=== PATIENT | female | born 1965 | race Asian ===

== ENCOUNTER 2019-03-09 16:35 | Emergency (ER) | payer OTHER ==
[~2019-03-09] VITALS: Ht 160 cm; Wt 65.8 kg
[2019-03-09] MEDS ORDERED: GABAPENTIN100 MG ORAL (16:50)
[2019-03-09] MEDS ORDERED: VOLTAREN25 MG PO (16:50)
[2019-03-09] MEDS ORDERED: NORCO 5-325 TA1 EACH ORAL (16:50)
[2019-03-09] MEDS ORDERED: ATENOLOL50 MG ORAL (16:50)
[2019-03-09] MEDS ORDERED: ZANTAC150 MG ORAL (16:50)
[2019-03-09 17:02] VITALS: BP 150/75
--- NOTE | 2019-03-09 17:12 | NUR ---
ED Nurse Note: Pt arrived in ED as walk in. Pt c/o dizziness and abdominal pain that started yesterday after eating a meal. Pt stated pain 01/13. Pt in gown and placed on quality assurance monitor body. No acute signs of distress noted.
[2019-03-09] MEDS ORDERED: Metoclopramide 10mg/2ml Inj IVP ONE (17:15)
--- NOTE | 2019-03-09 17:20 | NUR ---
ED Nurse Note: EKG at bedside by dairy technologist.
--- NOTE | 2019-03-09 17:28 | NUR ---
ED Nurse Note: pt was reminded to provide urine sample. pt will notify staff know when she can urinate.
--- NOTE | 2019-03-09 17:40 | NUR ---
ED Nurse Note: urine sample sent to lab.
[2019-03-09 17:42] LABS: BASOPHILS % (AUTO) 1.4 % (0.0-2.0); EOSINOPHILS % (AUTO) 7.8 % (0.0-3.0); HEMATOCRIT 38.4 % (37.0-47.0); HEMOGLOBIN 13.4 G/DL (12.0-16.0); LYMPHOCYTES % (AUTO) 33.5 % (20.0-45.0); MEAN CORPUSCULAR VOLUME 87 FL (80-99); MONOCYTES % (AUTO) 6.3 % (1.0-10.0); PLATELET COUNT 366 K/UL (150-450); WHITE BLOOD COUNT 7.4 K/UL (4.8-10.8)
[2019-03-09 17:49] LABS: ANION GAP 6 mmol/L (5-15); BLOOD UREA NITROGEN 14 mg/dL (7-18); CALCIUM 9.6 MG/DL (8.5-10.1); CARBON DIOXIDE 30 MMOL/L (21-32); CHLORIDE 104 MMOL/L (98-107); CREATININE 0.8 MG/DL (0.55-1.30); POTASSIUM 4.2 MMOL/L (3.5-5.1); SODIUM 140 MMOL/L (136-145)
[2019-03-09 17:54] LABS: ALANINE AMINOTRANSFERASE 34 U/L (12-78); ALBUMIN 3.9 G/DL (3.4-5.0); ALBUMIN/GLOBULIN RATIO 1.1 (1.0-2.7); ALKALINE PHOSPHATASE 49 U/L (46-116); ASPARTATE AMINO TRANSFERASE 22 U/L (15-37); BILIRUBIN,TOTAL 0.3 MG/DL (0.2-1.0)
[2019-03-09] MEDS ORDERED: ONDANSETRON ODT4 MG BC (18:09)
[2019-03-09] MEDS ORDERED: RANITIDINE HCL150 MG ORAL (18:09)
[2019-03-09 18:13] VITALS: BP 132/74
[2019-03-09 18:13] LABS: APPEARANCE,URINE CLEAR; BILIRUBIN, URINE NEGATIVE (NEGATIVE); COLOR,URINE PALE YELLOW; GLUCOSE, URINE (UA) NEGATIVE (NEGATIVE); KETONES,URINE NEGATIVE (NEGATIVE); LEUKOCYTE ESTERASE ,URINE NEGATIVE (NEGATIVE); NITRITE,URINE NEGATIVE (NEGATIVE); PH,URINE 5 (4.5-8.0); PROTEIN,URINE NEGATIVE (NEGATIVE); UROBILINOGEN,URINE NORMAL MG/DL (0.0-1.0)
--- NOTE | 2019-03-09 18:15 | NUR ---
ED Nurse Note: Pt cleared by health care Provider for discharge. DC instructions/prescription was given and explained to pt and verbalized understanding of teachings. Patient verbalized improved pain level to 2/10. All medical deviecs such as ID band removed. Pt is AAO x4, ambulatory and left with all personal belongings.
--- NOTE | 2019-03-09 19:25 | Emergency Room Report ---
History of Present Illness General Chief Complaint: Dizziness Source: Patient Present Illness HPI 53-year-old female presents ED for evaluation. Complaining of abdominal pain with nausea and vomiting and dizziness. Started last night after eating a " corn beef". Pain is burning, epigastric, 5 out of 10, nonradiating. Notes nausea, denies vomiting. Notes some loose stools. Denies chest pain or shortness of breath. Denies fevers or chills. Denies recent travel or recent antibiotic use. No other aggravating relieving factors. Denies any other associated symptoms Allergies: Coded Allergies: LORAZEPAM (Verified Allergy, Mild, Itching, 03/09/19) MORPHINE (Verified Allergy, Mild, Rash, 03/09/19) Patient History Past Medical History: HTN, other - neuropathy Past Surgical History: none Pertinent Family History: none Social History: Denies: smoking, alcohol use, drug use Last Menstrual Period: 2018 Now: No : 3 Para: 1 Immunizations: UTD Reviewed Nursing Documentation: PMH: Agreed; PSxH: Agreed Nursing Documentation-PMH Hx Hypertension: Yes Hx Gastrointestinal Problems: Yes Hx Neurological Problems: Yes - neuropathy Review of Systems All Other Systems: negative except mentioned in HPI Physical Exam Vital Signs Date Time Temp Pulse Resp B/P (MAP) Pulse Ox O2 Delivery O2 Flow Rate FiO2 03/09/19 16:41 97.9 59 16 143/86 (105) 98 Room Air Sp02 EP Interpretation: reviewed, normal General Appearance: no apparent distress, alert, GCS 15, non-toxic Head: normocephalic, atraumatic Eyes: bilateral eye normal inspection, bilateral eye PERRL ENT: hearing grossly normal, normal pharynx, no angioedema, normal voice Neck: full range of motion, supple/symm/no masses Respiratory: chest non-tender, lungs clear, normal breath sounds, speaking full sentences Cardiovascular #1: regular rate, rhythm, no edema Cardiovascular #2: 2+ carotid (R), 2+ carotid (L), 2+ radial (R), 2+ radial (L) , 2+ dorsalis pedis (R), 2+ dorsalis pedis (L) Gastrointestinal: normal bowel sounds, non tender, soft, non-distended, no guarding, no rebound Rectal: deferred Genitourinary: normal inspection, no CVA tenderness Musculoskeletal: back normal, gait/station normal, normal range of motion, non- tender Neurologic: alert, oriented x3, responsive, motor strength/tone normal, sensory intact, speech normal Psychiatric: judgement/insight normal, memory normal, mood/affect normal, no suicidal/homicidal ideation Reflexes: 3+ bicep (R), 3+ bicep (L), 3+ tricep (R), 3+ tricep (L), 3+ knee (R) , 3+ knee (L) Lymphatic: no adenopathy Medical Decision Making Diagnostic Impression: Primary Impression: Gastroenteritis ER Course Hospital Course 53 yo F presents to ED c/o dizziness, nausea, abd pain differential diagnosis: gastritis, SBO, cholecystits, gastroenteritis Clinical course Patient placed on stretcher. On personnel monitor. After initial history and physical I ordered labs, IV fluids, EKG, zofran, pepcid Labs - no leukocytosis, electrolytes ok, EKG - NSR, no acute ischemic changes interpreted by me Upon reassessment, patient states pain has improved. findings consistent with gastroenteritis I discussed findings with patient. Will discharge to home with prescriptions. I will provide referrals I feel this is a highly complex case requiring extensive working including EKG/ Rhythm strip, Xray/CT/US, Blood/urine lab work, repeat exams while in ED, and administration of strong opiates/narcotics for pain control, admission to hospital or close patient follow up. Diagnosis - gastroenteritis Stable and discharged to home with prescriptions for Zantac, zofran. Followup with PMD. Return to ED if symptoms recur or worsen Labs Test 03/09/19 17:15 03/09/19 17:30 White Blood Count 7.4 K/UL (4.8-10.8) Red Blood Count 4.40 M/UL (4.20-5.40) Hemoglobin 13.4 G/DL (12.0-16.0) Hematocrit 38.4 % (37.0-47.0) Mean Corpuscular Volume 87 FL (80-99) Mean Corpuscular Hemoglobin 30.4 PG (27.0-31.0) Mean Corpuscular Hemoglobin Concent 34.9 G/DL (32.0-36.0) Red Cell Distribution Width 10.0 % (11.6-14.8) Platelet Count 366 K/UL (150-450) Mean Platelet Volume 5.3 FL (6.5-10.1) Neutrophils (%) (Auto) 51.0 % (45.0-75.0) Lymphocytes (%) (Auto) 33.5 % (20.0-45.0) Monocytes (%) (Auto) 6.3 % (1.0-10.0) Eosinophils (%) (Auto) 7.8 % (0.0-3.0) Basophils (%) (Auto) 1.4 % (0.0-2.0) Sodium Level 140 MMOL/L (136-145) Potassium Level 4.2 MMOL/L (3.5-5.1) Chloride Level 104 MMOL/L (98-107) Carbon Dioxide Level 30 MMOL/L (21-32) Anion Gap 6 mmol/L (5-15) Blood Urea Nitrogen 14 mg/dL (7-18) Creatinine 0.8 MG/DL (0.55-1.30) Estimat Glomerular Filtration Rate > 60 mL/min (>60) Glucose Level 95 MG/DL (74-106) Calcium Level 9.6 MG/DL (8.5-10.1) Total Bilirubin 0.3 MG/DL (0.2-1.0) Aspartate Amino Transf (AST/SGOT) 22 U/L (15-37) Alanine Aminotransferase (ALT/SGPT) 34 U/L (12-78) Alkaline Phosphatase 49 U/L (46-116) Total Protein 7.4 G/DL (6.4-8.2) Albumin 3.9 G/DL (3.4-5.0) Globulin 3.5 g/dL Albumin/Globulin Ratio 1.1 (1.0-2.7) Lipase 146 U/L (73-393) Urine Color Pale yellow Urine Appearance Clear Urine pH 5 (4.5-8.0) Urine Specific [place] 1.015 (1.005-1.035) Urine Protein Negative (NEGATIVE) Urine Glucose (UA) Negative (NEGATIVE) Urine Ketones Negative (NEGATIVE) Urine Blood Negative (NEGATIVE) Urine Nitrite Negative (NEGATIVE) Urine Bilirubin Negative (NEGATIVE) Urine Urobilinogen Normal MG/DL (0.0-1.0) Urine Leukocyte Esterase Negative (NEGATIVE) EKG Diagnostic Results Rate: bradycardiac Rhythm: NSR ST Segments: no acute changes ASA given to the pt in ED: No Rhythm Strip Diag. Results EP Interpretation: yes Rhythm: NSR, no PVC's, no ectopy Last Vital Signs Date Time Temp Pulse Resp B/P (MAP) Pulse Ox O2 Delivery O2 Flow Rate FiO2 03/09/19 18:13 98.0 80 15 132/74 100 Room Air Status: improved Disposition: HOME, SELF-CARE Condition: Stable Scripts Ranitidine Hcl* (ZANTAC*) 150 Mg Tablet 150 MG ORAL TWICE A DAY, #30 TAB Prov: Wu Betancur MD 03/09/19 Ondansetron Odt* (ZOFRAN ODT*) 4 Mg Tab.rapdis 4 MG BC EVERY 6 HOURS PRN for Nausea & Vomiting, #20 TAB 0 Refills Prov: Wu Betancur MD 03/09/19 Referrals: [facility],REFERRING (PCP) Patient Instructions: Viral Gastroenteritis, Adult, [id number] Wu Betancur MD Mar 09, 2019 19:25
== END 2019-03-09 18:15 | disposition home or self-care (01) ==
LOC: EMR 17:03
DX: K52.9 Noninfective gastroenteritis and colitis, unspecified (principal); I10 Essential (primary) hypertension; G62.9 Polyneuropathy, unspecified; Z88.8 Allergy status to other drugs, medicaments and biological substances; Z88.6 Allergy status to analgesic agent
CPT/HCPCS: 36415; 80053; 81003; 83690; 85025; 93005; 96361; 96374; 96375; J2765; S0028; Z7502; 99284; J7030

== ENCOUNTER 2019-12-16 13:04 | Emergency (ER) | payer OTHER ==
[~2019-12-16] VITALS: Ht 160 cm; Wt 70.3 kg
[~2019-12-16 13:04] MED LIST: ATENOLOL50 MG ORAL; GABAPENTIN100 MG ORAL; NORCO 5-325 TA1 EACH ORAL; ONDANSETRON ODT4 MG BC; RANITIDINE HCL150 MG ORAL; VOLTAREN25 MG PO; ZANTAC150 MG ORAL
--- NOTE | 2019-12-16 13:20 | NUR ---
ED Nurse Note: Pt walked in from home c/o head ache and chills x 2 days. Pt has hx of HTN, BP elevated in the 170s upon arrival. Pt recently treated for hives, but feels the symptoms have become worse. Respirations even and unlabored on room air. Vitals stable as documented. A+Ox4, speaking in full sentences.
[2019-12-16 13:28] VITALS: BP 171/86
[2019-12-16] MEDS ORDERED: Metoclopramide 10mg/2ml Inj IVP ONE (15:00)
[2019-12-16] MEDS ORDERED: DiphenhydrAMINE 50mg/ml Inj IVP ONE (15:00)
[2019-12-16] MEDS ORDERED: Ketorolac 30mg Inj IV ONE (15:00)
--- NOTE | 2019-12-16 15:00 | Emergency Room Report ---
History of Present Illness General Chief Complaint: Headache Source: Patient Present Illness HPI Patient recently was treated for hives. She took prednisone 50 mg after being seen and receiving shots. She also has taken given Pepcid. She feels the Pepcid is not helping and makes her feel worse. Her main complaint at this time is headache. She feels it throughout her head. Pressure and pounding. She says 8 or 9/10. She is never had a headache like this before. Gradual onset. She denies any weakness. She feels dizzy. She has some nausea. She states her blood pressures been extremely high at this time. The rash is better and she has no itching. No fevers, chills, sore throat, chest pain, palpitations, vomiting, diarrhea, dysuria, abdominal pain, shortness of breath, joint pain, depression, anxiety, visual changes. Allergies: Coded Allergies: LORAZEPAM (Verified Allergy, Mild, Itching, 03/09/19) MORPHINE (Verified Allergy, Mild, Rash, 03/09/19) COVID-19 Screening Contact w/high risk pt: No Experienced COVID-19 symptoms?: No COVID-19 Testing performed CASEY SAW OPERATOR: No Patient History Past Medical History: see triage record Social History: Denies: smoking Social History Narrative Now: No Reviewed Nursing Documentation: PMH: Agreed; PSxH: Agreed Nursing Documentation-PMH Past Medical History: No History, Except For Hx Hypertension: Yes Hx Gastrointestinal Problems: Yes Hx Neurological Problems: Yes - neuropathy Review of Systems All Other Systems: negative except mentioned in HPI Physical Exam Vital Signs Date Time Temp Pulse Resp B/P (MAP) Pulse Ox O2 Delivery O2 Flow Rate FiO2 12/16/19 13:13 98.2 59 19 172/81 (111) 96 Room Air Sp02 EP Interpretation: reviewed, normal General Appearance: well appearing, no apparent distress, GCS 15 Head: normocephalic Eyes: bilateral eye normal inspection, bilateral eye PERRL, bilateral eye EOMI ENT: normal pharynx, moist mucus membranes Neck: full range of motion, supple Respiratory: lungs clear, normal breath sounds Cardiovascular #1: regular rate, rhythm Cardiovascular #2: 2+ radial (R) Gastrointestinal: normal inspection, normal bowel sounds, non tender, no mass, non-distended Musculoskeletal: back normal, normal range of motion, gait/station normal Neurologic: alert, motor strength/tone normal, research consultant III-XII nml as tested, oriented x3, sensory intact, cerebellar normal, speech normal Psychiatric: mood/affect normal Skin: no rash, warm/dry Medical Decision Making Diagnostic Impression: Primary Impression: Headache Qualified Codes: G44.099 - Other trigeminal autonomic cephalgias (tac), not intractable Additional Impressions: History of allergic urticaria Prednisone adverse reaction Qualified Codes: T38.0X5A - Adverse effect of glucocorticoids and synthetic analogues, initial encounter ER Course Patient presents with headache and dizziness while taking prednisone. Differential subarachnoid bleed, hypertensive urgency, tension headache, adverse reaction to prednisone amongst others. She has a nonfocal neurologic exam and no red flag symptoms or signs therefore imaging is not indicated. Evaluation with labs. Treatment with Reglan, Toradol and Benadryl. EKG obtained. Placed on bus driver/monitor due to hypertension. EKG no injury. Labs unremarkable. Patient improved with treatment. Blood pressure normalized. Discussed findings with patient and need for outpatient follow up. Patient stable for outpatient observation and treatment. Laboratory Tests Test 12/16/19 15:15 White Blood Count 10.3 K/UL (4.8-10.8) Red Blood Count 4.45 M/UL (4.20-5.40) Hemoglobin 13.7 G/DL (12.0-16.0) Hematocrit 39.9 % (37.0-47.0) Mean Corpuscular Volume 90 FL (80-99) Mean Corpuscular Hemoglobin 30.8 PG (27.0-31.0) Mean Corpuscular Hemoglobin Concent 34.4 G/DL (32.0-36.0) Red Cell Distribution Width 11.8 % (11.6-14.8) Platelet Count 304 K/UL (150-450) Mean Platelet Volume 5.6 FL (6.5-10.1) L Neutrophils (%) (Auto) 54.2 % (45.0-75.0) Lymphocytes (%) (Auto) 29.2 % (20.0-45.0) Monocytes (%) (Auto) 6.7 % (1.0-10.0) Eosinophils (%) (Auto) 8.7 % (0.0-3.0) H Basophils (%) (Auto) 1.2 % (0.0-2.0) Prothrombin Time 11.0 SEC (9.30-11.50) Prothrombin Time INR 1.0 (0.9-1.1) Activated Partial Thromboplast Time 24 SEC (23-33) Urine Color Pale yellow Urine Appearance Clear Urine pH 6 (4.5-8.0) Urine Specific [place] 1.010 (1.005-1.035) Urine Protein Negative (NEGATIVE) Urine Glucose (UA) Negative (NEGATIVE) Urine Ketones Negative (NEGATIVE) Urine Blood Negative (NEGATIVE) Urine Nitrite Negative (NEGATIVE) Urine Bilirubin Negative (NEGATIVE) Urine Urobilinogen Normal MG/DL (0.0-1.0) Urine Leukocyte Esterase Negative (NEGATIVE) Sodium Level 137 MMOL/L (136-145) Potassium Level 3.9 MMOL/L (3.5-5.1) Chloride Level 102 MMOL/L (98-107) Carbon Dioxide Level 29 MMOL/L (21-32) Anion Gap 6 mmol/L (5-15) Blood Urea Nitrogen 13 mg/dL (7-18) Creatinine 0.9 MG/DL (0.55-1.30) Estimated Glomerular Filtration Rate > 60 mL/min (>60) Glucose Level 102 MG/DL (74-106) Calcium Level 9.2 MG/DL (8.5-10.1) Total Bilirubin 0.4 MG/DL (0.2-1.0) Aspartate Amino Transferase (AST) 15 U/L (15-37) Alanine Aminotransferase (ALT) 32 U/L (12-78) Alkaline Phosphatase 49 U/L (46-116) Total Creatine Kinase 101 U/L (26-308) Troponin I 0.000 ng/mL (0.000-0.056) Pro-B-Type Natriuretic Peptide 138 pg/mL (0-125) H Total Protein 7.1 G/DL (6.4-8.2) Albumin 3.8 G/DL (3.4-5.0) Globulin 3.3 g/dL Albumin/Globulin Ratio 1.2 (1.0-2.7) EKG Diagnostic Results Rate: bradycardiac Rhythm: NSR ST Segments: no acute changes Rhythm Strip Diag. Results EP Interpretation: yes Rhythm: no PVC's, no ectopy, other - Bradycardia rate 54 Last Vital Signs Date Time Temp Pulse Resp B/P (MAP) Pulse Ox O2 Delivery O2 Flow Rate FiO2 8/12/20 16:40 98.3 78 16 115/72 98 Room Air Status: improved Disposition: HOME, SELF-CARE Condition: Improved Scripts Ondansetron Odt* (ZOFRAN ODT*) 4 Mg Tab.rapdis 4 MG BC EVERY 8 HOURS, #6 TAB 1 Refill Prov: Isra Jacob MD 12/16/19 Referrals: NON PHYSICIAN (PCP) Isra Jacob MD Dec 16, 2019 15:00
[2019-12-16 15:35] LABS: BASOPHILS % (AUTO) 1.2 % (0.0-2.0); EOSINOPHILS % (AUTO) 8.7 % (0.0-3.0); HEMATOCRIT 39.9 % (37.0-47.0); HEMOGLOBIN 13.7 G/DL (12.0-16.0); LYMPHOCYTES % (AUTO) 29.2 % (20.0-45.0); MEAN CORPUSCULAR VOLUME 90 FL (80-99); MONOCYTES % (AUTO) 6.7 % (1.0-10.0); NEUTROPHILS % (AUTO) 54.2 % (45.0-75.0); PLATELET COUNT 304 K/UL (150-450); RED BLOOD COUNT 4.45 M/UL (4.20-5.40); RED CELL DISTRIBUTION WIDTH 11.8 % (11.6-14.8); WHITE BLOOD COUNT 10.3 K/UL (4.8-10.8)
[2019-12-16 15:45] LABS: ANION GAP 6 mmol/L (5-15); BLOOD UREA NITROGEN 13 mg/dL (7-18); CALCIUM 9.2 MG/DL (8.5-10.1); CARBON DIOXIDE 29 MMOL/L (21-32); CHLORIDE 102 MMOL/L (98-107); CREATININE 0.9 MG/DL (0.55-1.30); POTASSIUM 3.9 MMOL/L (3.5-5.1); SODIUM 137 MMOL/L (136-145)
[2019-12-16 15:55] LABS: ALANINE AMINOTRANSFERASE 32 U/L (12-78); ALBUMIN 3.8 G/DL (3.4-5.0); ALBUMIN/GLOBULIN RATIO 1.2 (1.0-2.7); ALKALINE PHOSPHATASE 49 U/L (46-116); ASPARTATE AMINO TRANSFERASE 15 U/L (15-37); BILIRUBIN,TOTAL 0.4 MG/DL (0.2-1.0); CREATINE KINASE 101 U/L (26-308)
[2019-12-16 16:22] LABS: APPEARANCE,URINE CLEAR; BILIRUBIN, URINE NEGATIVE (NEGATIVE); COLOR,URINE PALE YELLOW; GLUCOSE, URINE (UA) NEGATIVE (NEGATIVE); KETONES,URINE NEGATIVE (NEGATIVE); LEUKOCYTE ESTERASE ,URINE NEGATIVE (NEGATIVE); NITRITE,URINE NEGATIVE (NEGATIVE); PH,URINE 6 (4.5-8.0); PROTEIN,URINE NEGATIVE (NEGATIVE); UROBILINOGEN,URINE NORMAL MG/DL (0.0-1.0)
[2019-12-16] MEDS ORDERED: ONDANSETRON ODT4 MG BC (16:31)
[2019-12-16 16:40] VITALS: BP 115/72
--- NOTE | 2019-12-16 16:40 | NUR ---
ED Nurse Note: Pt cleared by ERMD for discharge. DC instructions/prescription was given and explained to pt and verbalized understanding of teachings. All medical deviecs such as ID band and IV line removed. Pt is AAO x4, ambulatory and left with all personal belongings. P/u by her son.
--- NOTE | 2019-12-16 16:40 | NUR ---
ER DISCHARGE NOTE: Patient is cleared to be discharged per ERMD, pt is aox4, on room air, with stable vital signs. pt was given dc and prescription instructions, pt was able to verbalize understanding, pt id band and iv site removed without complications. pt is able to ambulate with steady gait. pt took all belongings.
[2019-12-17] MEDS ORDERED: FIORICET1 EA ORAL (16:28)
[2019-12-17] MEDS ORDERED: MECLIZINE HCL25 MG ORAL (16:28)
== END 2019-12-16 16:40 | disposition home or self-care (01) ==
LOC: EMR 13:26
DX: G44.099 Other trigeminal autonomic cephalgias (TAC), not intractable (principal); T38.0X5A Adverse effect of glucocorticoids and synthetic analogues, initial encounter; X58.XXXA Exposure to other specified factors, initial encounter; Y92.9 Unspecified place or not applicable; Z88.6 Allergy status to analgesic agent; I10 Essential (primary) hypertension; G62.9 Polyneuropathy, unspecified; R00.1 Bradycardia, unspecified
CPT/HCPCS: 36415; 80053; 81003; 82550; 83880; 84484; 85025; 85610; 85730; 93005; 96374; 96375; J1200; J1885; J2765; Z7502; 99284

== ENCOUNTER 2019-12-17 13:11 | Emergency (ER) | payer OTHER ==
[~2019-12-17] VITALS: Ht 160 cm; Wt 69.9 kg
[2019-12-17 13:28] VITALS: BP 142/75
[2019-12-17] MEDS ORDERED: Meclizine 25mg tab ORAL ONE ×2 (13:45→16:30)
--- NOTE | 2019-12-17 13:47 | Emergency Room Report ---
History of Present Illness General Chief Complaint: General Complaint Source: Patient Present Illness HPI Patient 54-year-old female presents after increased dizziness. Patient had reported increased spinning sensation. Reports is being worse with head movements. Associated nausea. Had recently been diagnosed with allergic reaction. Prior history of hypertension. Denies any ringing in her ears. States increased vertigo with movements of the head to both directions. Denies any hematemesis. Denies any chest discomfort. Reports having some history of high blood pressure. She states she takes atenolol. Patient had been seen yesterday at this emergency department and stated that she felt better yesterday. Vertigo subsequently recurred. Patient reports having some generalized headache. Denies any recent ill contacts. Denies any recent fever. Allergies: Coded Allergies: LORAZEPAM (Verified Allergy, Mild, Itching, 03/09/19) MORPHINE (Verified Allergy, Mild, Rash, 03/09/19) COVID-19 Screening Contact w/high risk pt: No Experienced COVID-19 symptoms?: No COVID-19 Testing performed HORTICULTURAL THERAPIST: No Patient History Past Medical History: see triage record Reviewed Nursing Documentation: PMH: Agreed; PSxH: Agreed Nursing Documentation-PMH Past Medical History: No History, Except For Hx Hypertension: Yes Hx Gastrointestinal Problems: Yes Hx Neurological Problems: Yes - neuropathy Review of Systems All Other Systems: negative except mentioned in HPI Physical Exam Vital Signs Date Time Temp Pulse Resp B/P (MAP) Pulse Ox O2 Delivery O2 Flow Rate FiO2 12/17/19 13:19 98.4 54 17 143/76 (98) 97 Room Air Sp02 EP Interpretation: reviewed, normal General Appearance: normal inspection, well appearing, no apparent distress, alert, GCS 15 Head: atraumatic ENT: normal ENT inspection, hearing grossly normal, normal voice Neck: normal inspection, full range of motion, supple, no bony tend Respiratory: normal inspection, lungs clear, normal breath sounds, no respiratory distress, no retraction, no wheezing Cardiovascular #1: regular rate, rhythm, no edema Gastrointestinal: normal inspection, normal bowel sounds, non tender, soft, no guarding, no hernia Genitourinary: no CVA tenderness Musculoskeletal: normal inspection, back normal, normal range of motion Neurologic: alert, motor strength/tone normal, spoon maker III-XII nml as tested, oriented x3, responsive, speech normal, normal inspection, other - Normal finger -to-nose, normal rapid alternating movement Psychiatric: normal inspection, judgement/insight normal, mood/affect normal Medical Decision Making Diagnostic Impression: Primary Impression: Headache ER Course Patient presented for increased dizziness. Differential diagnosis include was not limited to vertigo, laryngitis, CVA, labyrinthitis, benign positional vertigo, medication reaction among others. Because of complexity of patient's case laboratory tests and imaging studies were ordered.Patient was noted to have some recent history of allergic reaction for which he was prescribed prednisone. Persistently has some dizziness. CT imaging of the head was ordered to evaluate for possible posterior circulation abnormalities. CT of the head read by radiology showed no evidence of vascular occlusion. See radiology report for full details patient was given prescription for meclizine and patient was noted to have some improvement in vertigo. She was able to ambulate without assistance. Patient was advised to follow-up with neurology and ENT. She is advised to return if worse. She is advised low-salt diet. The patient is advised to follow up with primary care doctor in 1-2 days. Patient is advised to return if any worsening condition or if any changes in status that are concerning. This report is dictated with [employer] java software architect software which may occasionally lead to discrepancies related to use of this software. Labs Test 12/17/19 13:55 White Blood Count 8.9 K/UL (4.8-10.8) Red Blood Count 4.53 M/UL (4.20-5.40) Hemoglobin 13.6 G/DL (12.0-16.0) Hematocrit 40.6 % (37.0-47.0) Mean Corpuscular Volume 90 FL (80-99) Mean Corpuscular Hemoglobin 29.9 PG (27.0-31.0) Mean Corpuscular Hemoglobin Concent 33.4 G/DL (32.0-36.0) Red Cell Distribution Width 11.6 % (11.6-14.8) Platelet Count 313 K/UL (150-450) Mean Platelet Volume 5.9 FL (6.5-10.1) Neutrophils (%) (Auto) 59.3 % (45.0-75.0) Lymphocytes (%) (Auto) 23.3 % (20.0-45.0) Monocytes (%) (Auto) 6.9 % (1.0-10.0) Eosinophils (%) (Auto) 9.3 % (0.0-3.0) Basophils (%) (Auto) 1.2 % (0.0-2.0) Urine Color Pale yellow Urine Appearance Cloudy Urine pH 8 (4.5-8.0) Urine Specific [place] 1.010 (1.005-1.035) Urine Protein Negative (NEGATIVE) Urine Glucose (UA) Negative (NEGATIVE) Urine Ketones Negative (NEGATIVE) Urine Blood Negative (NEGATIVE) Urine Nitrite Negative (NEGATIVE) Urine Bilirubin Negative (NEGATIVE) Urine Urobilinogen Normal MG/DL (0.0-1.0) Urine Leukocyte Esterase Negative (NEGATIVE) Last Vital Signs Date Time Temp Pulse Resp B/P (MAP) Pulse Ox O2 Delivery O2 Flow Rate FiO2 12/17/19 13:28 57 17 Room Air 12/17/19 13:19 98.4 143/76 (98) 97 Status: improved Disposition: HOME, SELF-CARE Condition: Stable Scripts Meclizine Hcl* (MECLIZINE*) 25 Mg Tablet 25 MG ORAL THREE TIMES A DAY, #30 TAB Prov: Jim Coreas MD 12/17/19 Acetamin/Butalbital/Caffeine* (FIORICET*) 1 Ea Tab 1 TAB ORAL Q6H, #15 TAB 0 Refills Prov: Jim Coreas MD 12/17/19 Referrals: NON PHYSICIAN (PCP) Jim Coreas MD Dec 17, 2019 13:47
[2019-12-17 14:28] LABS: APPEARANCE,URINE CLOUDY; BILIRUBIN, URINE NEGATIVE (NEGATIVE); COLOR,URINE PALE YELLOW; GLUCOSE, URINE (UA) NEGATIVE (NEGATIVE); KETONES,URINE NEGATIVE (NEGATIVE); LEUKOCYTE ESTERASE ,URINE NEGATIVE (NEGATIVE); NITRITE,URINE NEGATIVE (NEGATIVE); PH,URINE 8 (4.5-8.0); PROTEIN,URINE NEGATIVE (NEGATIVE); UROBILINOGEN,URINE NORMAL MG/DL (0.0-1.0)
[2019-12-17 14:29] LABS: BASOPHILS % (AUTO) 1.2 % (0.0-2.0); EOSINOPHILS % (AUTO) 9.3 % (0.0-3.0); HEMATOCRIT 40.6 % (37.0-47.0); HEMOGLOBIN 13.6 G/DL (12.0-16.0); LYMPHOCYTES % (AUTO) 23.3 % (20.0-45.0); MEAN CORPUSCULAR VOLUME 90 FL (80-99); MONOCYTES % (AUTO) 6.9 % (1.0-10.0); NEUTROPHILS % (AUTO) 59.3 % (45.0-75.0); PLATELET COUNT 313 K/UL (150-450); RED BLOOD COUNT 4.53 M/UL (4.20-5.40); RED CELL DISTRIBUTION WIDTH 11.6 % (11.6-14.8); WHITE BLOOD COUNT 8.9 K/UL (4.8-10.8)
[2019-12-17 14:42] LABS: ANION GAP 6 mmol/L (5-15); BLOOD UREA NITROGEN 13 mg/dL (7-18); CALCIUM 9.2 MG/DL (8.5-10.1); CARBON DIOXIDE 29 MMOL/L (21-32); CHLORIDE 100 MMOL/L (98-107); CREATININE 0.8 MG/DL (0.55-1.30); SODIUM 135 MMOL/L (136-145)
[2019-12-17 14:46] LABS: ALANINE AMINOTRANSFERASE 32 U/L (12-78); ALBUMIN 3.8 G/DL (3.4-5.0); ALBUMIN/GLOBULIN RATIO 1.2 (1.0-2.7); ALKALINE PHOSPHATASE 50 U/L (46-116); ASPARTATE AMINO TRANSFERASE 17 U/L (15-37); BILIRUBIN,TOTAL 0.5 MG/DL (0.2-1.0)
[2019-12-17 15:35] VITALS: BP 135/68
--- NOTE | 2019-12-17 16:14 | Diagnostic Imaging Report ---
Indication: Dizziness and headaches with vomiting Technique: Precontrast spiral acquisitions obtained through the brain. IV administration nonionic contrast. Arterial phase spiral acquisitions obtained through the brain Multiplanar and 3-D reconstructions were generated. Total dose length product 3194 mGycm. CTDIvol(s) 45, 5, 249, 26, 45 mGy. Radiation dose was minimized using automated exposure control Comparison: none Findings: Precontrast images demonstrate no evidence of acute intracranial hemorrhage or edema. No mass effect nor midline shift. Normal size ventricles and extra axial CSF spaces. Normal carpenter-white differentiation. Postcontrast images demonstrate small caliber codominant distal vertebral arteries. These are nonstenotic. The PICA is are not well-demonstrated. Patent small caliber but nonstenotic basilar artery. Patent bilateral superior cerebellar arteries. Small caliber but otherwise unremarkable right posterior cerebral artery. Apparent origin of the left posterior cerebral artery, patent right posterior communicating artery with patent right P1 segment being present. Anterior circulation demonstrates patent nonstenotic bilateral distal internal carotid arteries. Patent nonstenotic bilateral M1 segments and proximal branches. Patent nonstenotic bilateral A1 segments and proximal branches. No evidence of aneurysm or vascular malformation demonstrated. No unusual contrast enhancement. Impression: Negative. No evidence of significant intracranial cerebrovascular insufficiency, aneurysm, or vascular malformation. No acute intracranial bleed or mass effect The CT scanner at [facility] is accredited by the [employer] and the scans are performed using protocols designed to limit radiation exposure to as low as reasonably achievable to attain images of sufficient resolution adequate for diagnostic evaluation.
--- NOTE | 2019-12-17 16:20 | Diagnostic Imaging Report ---
ndication: Reason For Exam: DIZZY Technique: IV administration nonionic contrast. Spiral acquisitions obtained through the neck. Multiplanar and 3-D reconstructions were generated. Total dose length product 3194 mGycm. CTDIvol(s) 45, 5, 249, 26, 45 mGy. Dose reduction achieved using automated exposure control Comparison: none Findings: Unremarkable aortic arch. Patent nonstenotic right brachiocephalic, common carotid, and internal carotid arteries. Patent and nonstenotic left common and internal carotid arteries. Patent and nonstenotic right proximal subclavian artery. Patent nonstenotic right vertebral artery, which is codominant with the contralateral side. Patent nonstenotic left subclavian and vertebral arteries. Tiny subcentimeter nodule is seen within the left thyroid lobe. No cervical mass or adenopathy. The nasopharynx, oropharynx, hypopharynx, larynx are all unremarkable. No axillary or supraclavicular mass or adenopathy demonstrated. The included lung apices are clear. Grossly unremarkable cervical spine. Impression: Negative Incidental finding of tiny left lobe thyroid nodule, for which no further follow-up is necessary The CT scanner at [facility] is accredited by the [employer] and the scans are performed using protocols designed to limit radiation exposure to as low as reasonably achievable to attain images of sufficient resolution adequate for diagnostic evaluation.
[2019-12-17] MEDS ORDERED: FIORICET1 EA ORAL (16:28)
[2019-12-17] MEDS ORDERED: MECLIZINE HCL25 MG ORAL (16:28)
[2019-12-17 17:05] VITALS: BP 125/70
== END 2019-12-17 17:05 | disposition home or self-care (01) ==
LOC: EMR 13:39
DX: R51 Headache (principal); I10 Essential (primary) hypertension; G62.9 Polyneuropathy, unspecified; Z88.5 Allergy status to narcotic agent; Z88.8 Allergy status to other drugs, medicaments and biological substances
CPT/HCPCS: 36415; 70496; 70498; 80053; 81003; 83690; 84484; 85025; 85610; 85730; 96374; J2405; J7040; Q9967; Z7502; 99284